=== PATIENT | male | born 1975 | race Caucasian/White ===

== ENCOUNTER → 2016-08-30 | Outpatient (CLI) | payer MEDICARE ==
[~2016-08-30] MED LIST: 'PARAFON FORTE500 M1 PO; AUGMENTIN 875 M1 TAB PO; BACTRIM DS 8001 TA1 PO; BENADRYL50 MG PO; BUSPAR15 MG PO; BUSPAR5 MG PO; CIPRO500 MG PO; CIPROFLOXACIN500 MG PO; CLINDAMYCIN150 MG PO; COGENTIN0.5 MG PO; CYCLOBENZAPRINE10 MG PO; DELTASONE20 M1 PO; FLEXERIL10 MG PO; HYDROCODONE BIT1 T11 PO; KEFLEX500 MG PO; LAMICTAL100 MG PO; LITHIUM CARBON150 MG PO; MEDROL DOSEPAK4 MG PO; MOTRIN800 MG PO; NKHM; NORCO 5-325 TA1 EACH PO; NORFLEX100 MG PO; OMEPRAZOLE40 MG PO; PEPCID20 MG PO; POLYETHYLENE GL1 PO7 PO; PREDNICOT20 MG PO; PREDNISONE10 MG PO; PREDNISONE20 MG PO; PROLIXIN10 MG PO; ROBAXIN-750750 MG PO; SEPTRA DS 800 M1 TAB PO; SEROQUEL300 MG PO; SUBOXONE 8 MG-1 EACH PO; SUBOXONE 8 MG-1 EACH SL; THORAZINE100 MG PO; THORAZINE200 MG PO; TORADOL10 MG PO; TRAMADOL HCL50 MG PO; TRILEPTAL150 MG PO; TYLENOL325 M1 PO; VALIUM5 MG PO; VIBRAMYCIN100 MG PO; VICODIN 5/500 505 MG PO; VICODIN 500 MG-1 TAB PO; VICODIN ES 7501 TAB PO
[2016-08-30 17:53] LABS: URINE AMPHETAMINES < 1000 (1000ng/ml); URINE BARBITURATES < 200 (200ng/ml); URINE COCAINE > 300 (300ng/ml)
[2016-08-30 18:08] LABS: BASO % 0.6 % (0.0-1.0); EOS # 0.2 10*3/uL (0.0-0.4); EOS % 2.3 % (1.0-4.0); HEMOGLOBIN 14.9 g/dl (14.0-18.0); LYMPH # 2.4 10*3/uL (1.3-4.4); LYMPH % 33.2 % (27.0-41.0); MEAN CELL VOLUME 97.8 fl (80.0-94.0); MEAN CORPUSCULAR HGB 32.4 pg (27.0-31.0); MEAN CORPUSCULAR HGB CONC 33.1 g/dl (33.0-37.0); MEAN PLATELET VOLUME 11.1 fl (9.6-12.3); MONO # 0.7 10*3/uL (0.1-1.0); MONO % 9.3 % (3.0-9.0); NEUT # 3.9 10*3/uL (2.3-7.9); NEUT % 54.5 % (47.0-73.0); PLATELET COUNT AUTOMATED 215 10*3/uL (130-400); RED CELL DISTRI WIDTH 12.9 % (0-14.5); WHITE BLOOD COUNT 7.1 10*3/uL (4.8-10.8)
[2016-08-30 18:25] LABS: ALBUMIN 4.3 gm/dl (3.1-4.5); ALKALINE PHOSPHATASE 94 U/L (45-117); BILIRUBIN, TOTAL 0.9 mg/dl (0.2-1.0); BUN 17 mg/dl (7-24); CARBON DIOXIDE 28 mmol/L (21-32); CHLORIDE 103 mmol/L (98-107); EST GLOM FILT AFRICAN AMERICAN > 60 ml/min; GLUCOSE 85 mg/dL (65-99); POTASSIUM 4.3 mmol/L (3.5-5.1); SGOT/AST 41 IU/L (3-35); SGPT/ALT 55 U/L (12-78); SODIUM 139 mmol/L (136-145); TOTAL PROTEIN 7.4 gm/dL (6.4-8.2)
[2016-08-30 18:26] LABS: PROTHROMBIN TIME 10.3 SECONDS (9.0-12.4)
[2016-08-30 18:28] LABS: BILIRUBIN, DIRECT 0.2 mg/dL (0.0-0.2); THYROID STIM HORMONE (HS) 1.85 uIU/ml (0.358-4.75)
[2016-08-30 18:29] LABS: VITAMIN D, 25-HYDROXY 25.9 ng/mL (30-100)
[2016-08-31 08:13] LABS: HEPATITIS B SURFACE AB 006395 Non Reactive (.); HIV 1+2 AB + HIV1 P24 AG Non Reactive (Non Reactive)
[2016-08-31 18:08] LABS: HEPATITIS C QUANTITATION 347000 IU/mL (.)
== END | disposition home or self-care (01) ==
LOC: LAB 15:16
PROVIDERS: Physician Assistant
DX: B18.2 Chronic viral hepatitis C (principal)

== ENCOUNTER → 2016-09-11 | Outpatient (CLI) | payer MEDICARE ==
[2016-09-11 21:09] LABS: URINE AMPHETAMINES < 1000 (1000ng/ml); URINE BARBITURATES < 200 (200ng/ml); URINE COCAINE < 300 (300ng/ml)
== END | disposition home or self-care (01) ==
LOC: LAB 18:21
PROVIDERS: Internal Medicine Infectious Disease
DX: B19.20 Unspecified viral hepatitis C without hepatic coma (principal); Z79.899 Other long term (current) drug therapy

== ENCOUNTER → 2016-09-18 | Outpatient (CLI) | payer MEDICARE | END | disposition home or self-care (01) | LOC: US 05:30 | DX: B19.20 Unspecified viral hepatitis C without hepatic coma (principal); K76.0 Fatty (change of) liver, not elsewhere classified ==

== ENCOUNTER → 2018-09-29 | Outpatient (CLI) | payer OTHER ==
[~2018-09-29] MED LIST changes: +DIAZEPAM10 M1 PO; +GABAPENTIN400 MG PO; +HALDOL5 MG PO; +NEURONTIN100 MG PO; +SEROQUEL50 MG PO
--- NOTE | 2018-09-29 09:40 | NUR ---
PT ARRIVED AMBULATORY FOR MEDIPORT FLUSH ORDERED. PT MEDIPORT ACCESSED AND FLUSHED PER POLICY. PT TOLERATED WELL. NO BLEEDING NOTED AT SITE, SITE ASYMPTOMATIC. PT DISCHARGED AMUBULATORY AT THIS TIME.
== END | disposition home or self-care (01) ==
LOC: MEDIPORT 08:29
DX: Z45.2 Encounter for adjustment and management of vascular access device (principal); B18.2 Chronic viral hepatitis C

== ENCOUNTER → 2018-11-11 | Outpatient (CLI) | payer OTHER | END | disposition home or self-care (01) | LOC: RAD 16:01 | DX: L03.113 Cellulitis of right upper limb (principal); R20.2 Paresthesia of skin; M25.441 Effusion, right hand; Z95.828 Presence of other vascular implants and grafts ==

== ENCOUNTER → 2018-11-27 | Day surgery (SDC) | payer OTHER ==
[~2018-11-27] VITALS: Ht 182.8 cm; Wt 83.9 kg
[2018-11-27 12:30] VITALS: BP 134/68
[2018-11-27 14:10] VITALS: BP 128/97
[2018-11-27 14:22] VITALS: BP 119/82
[2018-11-27 14:40] VITALS: BP 126/61
[2018-11-27 14:55] VITALS: BP 123/66
[2018-11-27 15:10] VITALS: BP 123/83
== END | disposition home or self-care (01) ==
LOC: SDC 11-26 15:00
DX: S60.456A Superficial foreign body of right little finger, initial encounter (principal); X58.XXXA Exposure to other specified factors, initial encounter; Y93.89 Activity, other specified; Y92.89 Other specified places as the place of occurrence of the external cause; Y99.8 Other external cause status; F41.9 Anxiety disorder, unspecified; F32.9 Major depressive disorder, single episode, unspecified; F15.11 Other stimulant abuse, in remission; M19.90 Unspecified osteoarthritis, unspecified site; K21.9 Gastro-esophageal reflux disease without esophagitis; F17.210 Nicotine dependence, cigarettes, uncomplicated; Z79.899 Other long term (current) drug therapy; Z88.8 Allergy status to other drugs, medicaments and biological substances; Z98.890 Other specified postprocedural states; Z86.19 Personal history of other infectious and parasitic diseases; Z82.49 Family history of ischemic heart disease and other diseases of the circulatory system

== ENCOUNTER → 2019-04-30 | Outpatient (CLI) | payer OTHER ==
--- NOTE | 2019-04-30 12:03 | NUR ---
MEDIPORT FLUSHED PER P/P. PT TOLERATED WELL. SITE ASYMPTAMATIC, BANDAID APPLIED. LORENA COLEMAN RN
== END | disposition home or self-care (01) ==
LOC: MEDIPORT 04-21 11:30
DX: Z45.2 Encounter for adjustment and management of vascular access device (principal)

== ENCOUNTER → 2019-06-15 | Outpatient (CLI) | payer MEDICARE, MEDICAID ==
--- NOTE | 2019-06-15 15:31 | NUR ---
PATIENT AMBULATED INTO THE TREATMENT AREA FOR A MEDIPORT FLUSH. CHEST WAS CLEANED AND MEDIPORT WAS ACCESSED PER PORTOCOL. SALINE AND HEPARIN WERE FLUSHED PER PROTOCOL. REMOVED ACCESS. BLEEDING CONTROLLED. PATIENT AMBULATED TO EXIT. PATIENT IS D/C HOME.
[2019-06-15 15:40] LABS: HEMOGLOBIN 15.3 g/dl (14.0-18.0); MEAN CORPUSCULAR HGB 32.3 pg (27.0-31.0); MEAN CORPUSCULAR HGB CONC 33.3 g/dl (33.0-37.0); MEAN PLATELET VOLUME 10.5 fl (9.6-12.3); RED BLOOD COUNT 4.74 10*6/uL (4.50-5.90); RED CELL DISTRI WIDTH 12.4 % (0-14.5); WHITE BLOOD COUNT 4.8 10*3/uL (4.8-10.8)
[2019-06-15 15:54] LABS: ALKALINE PHOSPHATASE 97 U/L (45-117); BUN 12 mg/dl (7-24); CHLORIDE 105 mmol/L (98-107); CHOLESTEROL 157 mg/dL (<200); HDL CHOLESTEROL 37 mg/dl (40-60); LDL CHOLESTEROL 83 mg/dL (9-159); POTASSIUM 3.9 mmol/L (3.5-5.1); SGOT/AST 34 IU/L (3-35); SGPT/ALT 49 U/L (12-78); SODIUM 139 mmol/L (136-145); TOTAL PROTEIN 7.8 gm/dL (6.4-8.2); TRIGLYCERIDES 186 mg/dl (<150); VLDL CHOLESTEROL 37 mg/dL (6-40)
[2019-06-15 15:55] LABS: BILIRUBIN, DIRECT 0.2 mg/dL (0.0-0.2)
[2019-06-15 16:00] LABS: URINE AMPHETAMINES < 1000 (1000ng/ml); URINE BARBITURATES < 200 (200ng/ml); URINE BENZODIAZEPINES > 200 (200ng/ml); URINE CANNABINOIDS (THC) < 50 (50ng/ml); URINE COCAINE < 300 (300ng/ml); URINE METHADONE < 300 (300ng/ml); URINE OPIATES < 300 (300ng/ml)
[2019-06-15 16:01] LABS: URINE PHENCYCLIDINE < 25 (25ng/ml)
[2019-06-16 08:10] LABS: HEPATITIS B SURFACE AB 006395 Reactive (.)
[2019-06-16 20:09] LABS: HEPATITIS C QUANTITATION 1670000 IU/mL (.)
[2019-06-17 02:05] LABS: TESTOSTERONE FREE, (DIRECT) 2.2 pg/mL (6.8-21.5)
== END | disposition home or self-care (01) ==
LOC: MEDIPORT 05-28 10:12 → LAB 12:26 → MEDIPORT 12:26
PROVIDERS: Internal Medicine; Internal Medicine Gastroenterology
DX: Z45.2 Encounter for adjustment and management of vascular access device (principal); B18.2 Chronic viral hepatitis C; E78.00 Pure hypercholesterolemia, unspecified; K21.9 Gastro-esophageal reflux disease without esophagitis; E55.9 Vitamin D deficiency, unspecified; N52.9 Male erectile dysfunction, unspecified

== ENCOUNTER → 2019-06-25 | Outpatient (CLI) | payer MEDICARE, OTHER ==
[2019-06-25 11:36] LABS: BASO % 0.5 % (0.0-1.0); EOS # 0.2 10*3/uL (0.0-0.4); EOS % 3.7 % (1.0-4.0); HEMATOCRIT 45.8 % (42.0-52.0); HEMOGLOBIN 15.6 g/dl (14.0-18.0); LYMPH # 2.2 10*3/uL (1.3-4.4); LYMPH % 34.4 % (27.0-41.0); MEAN CELL VOLUME 94.4 fl (80.0-94.0); MEAN CORPUSCULAR HGB 32.2 pg (27.0-31.0); MEAN CORPUSCULAR HGB CONC 34.1 g/dl (33.0-37.0); MEAN PLATELET VOLUME 11.2 fl (9.6-12.3); MONO # 0.6 10*3/uL (0.1-1.0); MONO % 9.6 % (3.0-9.0); NEUT # 3.3 10*3/uL (2.3-7.9); NEUT % 51.3 % (47.0-73.0); PLATELET COUNT AUTOMATED 220 10*3/uL (130-400); RED BLOOD COUNT 4.85 10*6/uL (4.50-5.90); RED CELL DISTRI WIDTH 12.4 % (0-14.5); WHITE BLOOD COUNT 6.4 10*3/uL (4.8-10.8)
[2019-06-25 11:53] LABS: ALBUMIN 3.7 gm/dl (3.1-4.5); ALKALINE PHOSPHATASE 100 U/L (45-117); BUN 19 mg/dl (7-24); CHLORIDE 108 mmol/L (98-107); CREATININE 1.04 mg/dL (0.70-1.30); POTASSIUM 4.2 mmol/L (3.5-5.1); SGOT/AST 45 IU/L (3-35); SGPT/ALT 55 U/L (12-78); SODIUM 140 mmol/L (136-145); T3 UPTAKE 38 % (31-39); THYROXINE (T4) TOTAL 14.5 ug/dl (4.5-12.1)
[2019-06-26 09:07] LABS: FOLLICLE STIMULATING HORMONE 5.7 mIU/mL (1.5-12.4); LUTEINIZING HORMONE 004283 8.2 mIU/mL (1.7-8.6); PROGESTERONE 004317 1.2 ng/mL (0.0-0.5); PROLACTIN 004465 5.9 ng/mL (4.0-15.2)
== END | disposition home or self-care (01) ==
LOC: LAB 10:31
PROVIDERS: Nurse Practitioner Family
DX: Z12.5 Encounter for screening for malignant neoplasm of prostate (principal); D40.0 Neoplasm of uncertain behavior of prostate; R53.83 Other fatigue

== ENCOUNTER → 2019-09-03 | Outpatient (CLI) | payer MEDICARE, OTHER ==
[~2019-09-03] MED LIST changes: +SEROQUEL25 MG PO
[2019-09-03 11:55] VITALS: BP 116/74
--- NOTE | 2019-09-03 12:02 | NUR ---
PT HERE FOR MEDIPORT FLUSH. MEDIPORT FLUSHED BY REG WRIGHT. PT IS ASYMPTOMATIC. PORT FLUSHED WITH SALINE AND HEPERIN. PT TOLERATED PROCEDDURE.
== END | disposition home or self-care (01) ==
LOC: MEDIPORT 09:00
DX: Z95.828 Presence of other vascular implants and grafts (principal)

== ENCOUNTER → 2019-10-28 | Outpatient (CLI) | payer MEDICARE ==
--- NOTE | 2019-10-28 11:12 | NUR ---
PATIENTS PRESENTS TO OPS FOR MEDIPORT FLUSH.MEDIPORT ACCESSED FOR PROMPT BLOOD RETURN. FULSHED PER PROTOCOL. PATIENT TOLERAted WELL . bANDAID APPLIED
== END | disposition home or self-care (01) ==
LOC: MEDIPORT 10-01 10:00 → LAB 10:57 → MEDIPORT 11:00
DX: Z95.828 Presence of other vascular implants and grafts (principal)

== ENCOUNTER → 2020-02-18 | Outpatient (CLI) | payer MEDICARE ==
--- NOTE | 2020-02-18 13:35 | NUR ---
1325- [facility] ACCESSED WITH NON-CORING NEEDLE AFTER CLEANSING WITH CHLORAPREP. UNABLE TO OBTAIN BLOOD RETURN BUT FLUSHED EASILY PER POLICY. NON-CORING NEEDLE WITHDRAWN AND BANDAID TO SITE. DISCHARGED AMBULATORY.
== END | disposition home or self-care (01) ==
LOC: MEDIPORT 02-05 05:03
DX: Z45.2 Encounter for adjustment and management of vascular access device (principal)

== ENCOUNTER 2020-03-31 11:57 | Emergency (ER) | payer MEDICARE ==
[~2020-03-31] VITALS: Ht 182.8 cm; Wt 81.6 kg
[2020-03-31 12:03] VITALS: BP 118/100
[2020-03-31] MEDS ORDERED: CEPHALEXIN500 M1 PO (14:11)
== END 2020-03-31 14:20 | disposition home or self-care (01) ==
LOC: ED 11:57
DX: S51.811A Laceration without foreign body of right forearm, initial encounter (principal); Z88.6 Allergy status to analgesic agent; Z88.8 Allergy status to other drugs, medicaments and biological substances; Z88.4 Allergy status to anesthetic agent; Z79.899 Other long term (current) drug therapy; W25.XXXA Contact with sharp glass, initial encounter; Y93.89 Activity, other specified; Y92.89 Other specified places as the place of occurrence of the external cause; Y99.8 Other external cause status

== ENCOUNTER → 2020-08-30 | Outpatient (CLI) | payer MEDICARE ==
[~2020-08-30] MED LIST changes: +CEPHALEXIN500 M1 PO
== END | disposition home or self-care (01) ==
LOC: COVID19 15:41
PROVIDERS: ATTEND Internal Medicine
DX: Z20.822 Contact with and (suspected) exposure to COVID-19 (principal)

== ENCOUNTER → 2020-10-18 | Outpatient (CLI) | payer MEDICARE ==
[2020-10-18 12:22] LABS: BASO % 0.4 % (0.0-1.0); EOS # 0.1 10*3/uL (0.0-0.4); EOS % 0.8 % (1.0-4.0); HEMATOCRIT 42.7 % (42.0-52.0); LYMPH # 2.1 10*3/uL (1.3-4.4); LYMPH % 25.4 % (27.0-41.0); MEAN CORPUSCULAR HGB CONC 33.7 g/dl (33.0-37.0); MEAN PLATELET VOLUME 10.5 fl (9.6-12.3); MONO # 0.6 10*3/uL (0.1-1.0); NEUT # 5.6 10*3/uL (2.3-7.9); NEUT % 66.2 % (47.0-73.0); PLATELET COUNT AUTOMATED 253 10*3/uL (130-400); RED BLOOD COUNT 4.64 10*6/uL (4.50-5.90); RED CELL DISTRI WIDTH 12.9 % (0-14.5); WHITE BLOOD COUNT 8.4 10*3/uL (4.8-10.8)
[2020-10-18 12:54] LABS: ALBUMIN 4.1 gm/dl (3.1-4.5); BUN 16 mg/dl (7-24); CHLORIDE 109 mmol/L (98-107); CREATININE 1.02 mg/dL (0.70-1.30); POTASSIUM 3.6 mmol/L (3.5-5.1); SGOT/AST 15 IU/L (3-35); SGPT/ALT 22 U/L (12-78); SODIUM 142 mmol/L (136-145)
[2020-10-18 12:56] LABS: ALKALINE PHOSPHATASE 105 U/L (45-117); TOTAL PROTEIN 7.9 gm/dL (6.4-8.2)
[2020-10-19 05:31] LABS: HEP B CORE AB, IGM Negative (Negative); HEPATITIS B SURFACE AG Negative (Negative)
[2020-10-19 11:10] LABS: HEPATITIS C VIRUS ANTIBODY >11.0 s/co (0.0-0.9)
== END | disposition home or self-care (01) ==
LOC: MEDIPORT 09:30 → LAB 11:24
PROVIDERS: ATTEND Physician Assistant
DX: Z45.2 Encounter for adjustment and management of vascular access device (principal); F11.20 Opioid dependence, uncomplicated; R53.82 Chronic fatigue, unspecified; Z57.8 Occupational exposure to other risk factors

== ENCOUNTER → 2020-12-19 | Outpatient (CLI) | payer MEDICARE | END | disposition home or self-care (01) | LOC: MEDIPORT 11-15 12:00 | PROVIDERS: ATTEND Physician Assistant | DX: Z95.828 Presence of other vascular implants and grafts (principal) ==

== ENCOUNTER → 2021-03-15 | Outpatient (CLI) | payer MEDICARE | END | disposition home or self-care (01) | LOC: MEDIPORT 11:00 | PROVIDERS: ATTEND Physician Assistant | DX: Z45.2 Encounter for adjustment and management of vascular access device (principal); Z95.828 Presence of other vascular implants and grafts ==

== ENCOUNTER → 2021-05-16 | Outpatient (CLI) | payer MEDICARE | END | disposition home or self-care (01) | LOC: MEDIPORT 00:23 → PHLEB 09:00 | PROVIDERS: ATTEND Physician Assistant | DX: Z45.2 Encounter for adjustment and management of vascular access device (principal); Z95.828 Presence of other vascular implants and grafts ==

== ENCOUNTER → 2021-07-25 | Outpatient (CLI) | payer MEDICARE ==
[2021-07-25 11:38] LABS: ALBUMIN 3.6 gm/dl (3.1-4.5); ALKALINE PHOSPHATASE 105 U/L (45-117); BUN 11 mg/dl (7-24); CHLORIDE 106 mmol/L (98-107); CREATININE 0.78 mg/dL (0.70-1.30); POTASSIUM 3.3 mmol/L (3.5-5.1); SGOT/AST 18 IU/L (3-35); SGPT/ALT 23 U/L (12-78); SODIUM 139 mmol/L (136-145); TOTAL PROTEIN 7.2 gm/dL (6.4-8.2)
== END | disposition home or self-care (01) ==
LOC: MEDIPORT 07-24 09:00 → LAB 10:19
PROVIDERS: Family Medicine; ATTEND Physician Assistant
DX: Z45.2 Encounter for adjustment and management of vascular access device (principal)

== ENCOUNTER → 2021-08-01 | Outpatient (CLI) | payer MEDICARE | END | disposition home or self-care (01) | LOC: COVID19 16:17 | PROVIDERS: ATTEND Internal Medicine | DX: U07.1 COVID-19 (principal) ==

== ENCOUNTER → 2021-09-15 | Outpatient (CLI) | payer MEDICARE | END | disposition home or self-care (01) | LOC: MEDIPORT 08:55 | PROVIDERS: ATTEND Physician Assistant | DX: Z45.2 Encounter for adjustment and management of vascular access device (principal); I10 Essential (primary) hypertension; K21.9 Gastro-esophageal reflux disease without esophagitis; G89.29 Other chronic pain; Z88.4 Allergy status to anesthetic agent; Z88.6 Allergy status to analgesic agent; Z88.7 Allergy status to serum and vaccine; Z87.891 Personal history of nicotine dependence ==

== ENCOUNTER → 2021-10-09 | Outpatient (CLI) | payer MEDICARE ==
[2021-10-09 11:54] LABS: HEMATOCRIT 40.2 % (42.0-52.0); MEAN CELL VOLUME 91.6 fl (80.0-94.0); MEAN CORPUSCULAR HGB 31.2 pg (27.0-31.0); MEAN CORPUSCULAR HGB CONC 34.1 g/dl (33.0-37.0); MEAN PLATELET VOLUME 10.7 fl (9.6-12.3); RED BLOOD COUNT 4.39 10*6/uL (4.50-5.90); RED CELL DISTRI WIDTH 12.6 % (0-14.5); WHITE BLOOD COUNT 10.1 10*3/uL (4.8-10.8)
[2021-10-09 12:41] LABS: ALBUMIN 4.1 gm/dl (3.1-4.5); ALKALINE PHOSPHATASE 104 U/L (45-117); BUN 11 mg/dl (7-24); CHLORIDE 108 mmol/L (98-107); CHOLESTEROL 174 mg/dL (<200); CREATININE 0.75 mg/dL (0.70-1.30); LDL CHOLESTEROL 114 mg/dL (9-159); POTASSIUM 3.5 mmol/L (3.5-5.1); SGOT/AST 17 IU/L (3-35); SGPT/ALT 17 U/L (12-78); SODIUM 141 mmol/L (136-145); TOTAL PROTEIN 7.5 gm/dL (6.4-8.2); TRIGLYCERIDES 85 mg/dl (<150)
[2021-10-10 21:06] LABS: TESTOSTERONE FREE, (DIRECT) 3.7 pg/mL (6.8-21.5)
== END | disposition home or self-care (01) ==
LOC: MEDIPORT 09:00 → LAB 10:36
PROVIDERS: ATTEND Physician Assistant
DX: F31.12 Bipolar disorder, current episode manic without psychotic features, moderate (principal); F17.210 Nicotine dependence, cigarettes, uncomplicated; N52.9 Male erectile dysfunction, unspecified; Z95.828 Presence of other vascular implants and grafts; B18.2 Chronic viral hepatitis C; E78.00 Pure hypercholesterolemia, unspecified; Z79.899 Other long term (current) drug therapy

== ENCOUNTER → 2021-10-18 | Outpatient (CLI) | payer MEDICARE | END | disposition home or self-care (01) | LOC: LAB 08:58 → SDC 09:00 → CARD 09:30 | PROVIDERS: ATTEND Physician Assistant | DX: Z45.2 Encounter for adjustment and management of vascular access device (principal); R00.1 Bradycardia, unspecified; E29.1 Testicular hypofunction; Z12.5 Encounter for screening for malignant neoplasm of prostate ==

== ENCOUNTER → 2022-02-13 | Outpatient (CLI) | payer MEDICARE | END | disposition home or self-care (01) | LOC: MEDIPORT 11:00 | PROVIDERS: ATTEND Physician Assistant | DX: Z45.2 Encounter for adjustment and management of vascular access device (principal) ==

== ENCOUNTER → 2022-08-23 | Outpatient (CLI) | payer MEDICARE | END | disposition home or self-care (01) | LOC: MEDIPORT 08:00 | PROVIDERS: ATTEND Physician Assistant | DX: Z45.2 Encounter for adjustment and management of vascular access device (principal); B18.2 Chronic viral hepatitis C ==

== ENCOUNTER → 2022-10-30 | Outpatient (CLI) | payer MEDICARE | END | disposition home or self-care (01) | LOC: LAB 07:52 → MEDIPORT 08:00 | PROVIDERS: ATTEND Nurse Practitioner Family | DX: Z45.2 Encounter for adjustment and management of vascular access device (principal); B18.2 Chronic viral hepatitis C ==

== ENCOUNTER → 2023-07-31 | Outpatient (CLI) | payer MEDICARE | END | disposition home or self-care (01) | LOC: CARD 10:30 | PROVIDERS: ATTEND Physician Assistant | DX: Z51.81 Encounter for therapeutic drug level monitoring (principal) ==

== ENCOUNTER → 2024-06-23 | Outpatient (CLI) | payer MEDICARE ==
[2024-06-23 15:15] LABS: BASO % 0.5 % (0.0-1.0); EOS # 0.1 10*3/uL (0.0-0.4); EOS % 1.5 % (1.0-4.0); HEMATOCRIT 39.4 % (42.0-52.0); MEAN CELL VOLUME 94.3 fl (80.0-94.0); MEAN CORPUSCULAR HGB 31.3 pg (27.0-31.0); MEAN CORPUSCULAR HGB CONC 33.2 g/dl (33.0-37.0); MONO # 0.5 10*3/uL (0.1-1.0); MONO % 7.7 % (3.0-9.0); NEUT # 3.4 10*3/uL (2.3-7.9); NEUT % 58.8 % (47.0-73.0); PLATELET COUNT AUTOMATED 225 10*3/uL (130-400); RED BLOOD COUNT 4.18 10*6/uL (4.50-5.90); RED CELL DISTRI WIDTH 12.1 % (0-14.5); WHITE BLOOD COUNT 5.8 10*3/uL (4.8-10.8)
[2024-06-23 15:57] LABS: ALKALINE PHOSPHATASE 88 U/L (46-116); BUN 12 mg/dl (9-23); CHLORIDE 105 mmol/L (98-107); POTASSIUM 3.9 mmol/L (3.4-5.1); SGPT/ALT 18 U/L (5-49); TOTAL PROTEIN 7.1 gm/dL (6.0-8.0)
[2024-06-24 10:08] LABS: HBSAG Negative (Negative); HEP B CORE AB, IGM Negative (Negative)
[2024-06-29 12:24] LABS: HEPATITIS C ANTIBODY Reactive (Non Reactive)
== END | disposition home or self-care (01) ==
LOC: LAB 14:54
PROVIDERS: ATTEND Nurse Practitioner Family
DX: F11.20 Opioid dependence, uncomplicated (principal); R53.83 Other fatigue